=== PATIENT | female | born 1990 | race Caucasian/White ===

== ENCOUNTER 2016-08-26 01:01 | Emergency (ER) | payer SELFPAY ==
--- NOTE | 2016-08-26 01:53 | ED ---
Abdominal Pain/Female - HPI Summary HPI Summary: Patient presents for evaluation of evaluation of pelvic pain. Has been dealing with sharp suprapubic pain with radiation down to the vagina for the last several years. Recurrent issue without change to character. Came for evaluation. Claims to have had several ED visits with various imaging and diagnositic modalities without focal cause. Never FU with CHIEF RECORDIST as directed. Denies flank pain, systemic symptoms, concern for STD, vaginal bleeding or discharge. No allev factors attempted. No specific aggrav factors. - History of Current Complaint Chief Complaint: EDAbdPain Stated Complaint: ABD PAIN Time Seen by Provider: 08/26/16 01:18 Hx Obtained From: Patient, Family/[employer] [place] [employer] - Boyfriend Hx Last Menstrual Period: 11/29/13 Onset/Duration: Gradual Onset Timing: Intermittent Episode Lasting - Minutes Pain Intensity: 10 Allergies/Adverse Reactions: Allergies Allergy/AdvReac Type Severity Reaction Status Date / Time No Known Allergies Allergy Verified 05/03/15 13:26 PMH/Surg Hx/FS Hx/Imm Hx Previously Healthy: Yes Respiratory History: Reports: Hx Asthma - Surgical History Surgery Procedure, Year, and Place: wisdom teeth extraction 10/2013 Infectious Disease History: No Infectious Disease History: Denies: Traveled Outside the [place] in Last 30 Days - Social History Alcohol Use: None Substance Use Type: Reports: None Smoking Status (MU): Never Smoked Tobacco Type: eCigarettes Review of Systems Negative: Fever, Chills Positive: no symptoms reported All Other Systems Reviewed And Are Negative: Yes Physical Exam Triage Information Reviewed: Yes Vital Signs On Initial Exam: Initial Vitals Temp Pulse Resp BP Pulse Ox 98.2 F 82 16 120/76 98 08/26/16 01:11 08/26/16 01:11 08/26/16 01:11 08/26/16 01:11 08/26/16 01:11 Vital Signs Reviewed: Yes Appearance: Positive: Well-Appearing, No Pain Distress, Well-Nourished Skin: Positive: Warm, Skin Color Reflects Adequate Perfusion, Dry Respiratory/Lung Sounds: Positive: Clear to Auscultation, Breath Sounds Present Cardiovascular: Positive: Normal, RRR, Pulses are Symmetrical in both Upper and Lower Extremities Abdomen Description: Positive: Nontender, No Organomegaly, Soft Pelvic Exam: Positive: other - Deferred pelvic exam Musculoskeletal: Positive: Normal, Strength/ROM Intact Neurological: Positive: Normal, Sensory/Motor Intact, Alert, Oriented to Person Place, Time, CN Intact II-III, Reflexes Intact, Normal Gait Diagnostics - Vital Signs Vital Signs Temp Pulse Resp BP Pulse Ox 08/26/16 01:11 98.2 F 82 16 120/76 98 - Laboratory Lab Statement: Any lab studies that have been ordered have been reviewed, and results considered in the medical decision making process. Abdominal Pain Fem Course/Dx - Diagnoses Differential Diagnosis: Positive: Ectopic , Pelvic Inflammatory Disease , Urinary Tract Infection, Other - Unclear cause for the recurrent suprapubic pain with radiation down to the vagina. She is deferring pelvic exam and ultrasound since having previously had these. We discussed CHIEF RECORDIST FU to further evaluate this since this is a recurrent issue for the last several years without change to charcater. She is concerned for and we will check for UPT. Provider Diagnoses: Pelvic pain Discharge - Discharge Plan Condition: Stable Disposition: HOME Patient Education Materials: Pelvic Pain in Women (ED) Referrals: Michael CEVALLOS,Mary Hinds [Primary Care Provider] - Lisa Avilez MD [Medical Doctor] -
[2016-08-26 02:16] LABS: Manual Entry Verification LOR0008; UR Preg Internal Control QC Line Present; Urine Bilirubin Negative (Negative); Urine Glucose Negative (Negative); Urine Nitrite Negative (Negative)
[2016-08-26 02:28] VITALS: BP 109/64
== END 2016-08-26 02:27 | disposition home or self-care (01) ==
LOC: ED 01:01
DX: R10.2 Pelvic and perineal pain (principal)
CPT/HCPCS: 81003; 81025; 99282

== ENCOUNTER 2019-07-29 10:22 | Emergency (ER) | payer SELFPAY ==
[2019-07-29 10:47] VITALS: BP 121/73
--- NOTE | 2019-07-29 11:00 | UC ---
Throat Pain/Nasal Ayan HPI - HPI Summary HPI Summary: 28 yo female presents with lightheadedness. She tells me that she has had lightheadedness for several months - this is not new. Feels as though the room is spinning. Over the last 2 weeks she has had two episodes of what she describes as "blacking out". Most recently was yesterday. She will feel increased lightheadedness, get tunnel vision, feel faint, and vision will go dark for <20 seconds and she will improve spontaneously. Not accompanied by headache, SOB, chest pain/palpitations, abdominal pain, n/v, weakness, numbness. This has never happened to her before. She reports that both times have happened in the morning around 1030 or 1100. She does not eat breakfast. She has no PMHx positive for vertigo and asthma. Family hx of DM, but no ACS, CAD, or arrhythmias that she is aware of. She is feeling well otherwise and denies recent illness, headache, SOB, chest pain, palpitations, abdominal pain, n/v/d/c, dysuria, back pain. States no chance of today - LMP 1 week ago. - History of Current Complaint Chief Complaint: UCGeneralIllness Stated Complaint: DIZZY SPELLS Time Seen by Provider: 07/29/19 11:00 Hx Obtained From: Patient Hx Last Menstrual Period: 07/20/2019 Onset/Duration: Sudden Onset Pain Intensity: 0 - Allergies/Home Medications Allergies/Adverse Reactions: Allergies Allergy/AdvReac Type Severity Reaction Status Date / Time No Known Allergies Allergy Verified 05/03/15 13:26 Home Medications: Home Medications NK [No Home Medications Reported] 07/29/19 [History Confirmed 07/29/19] PMH/Surg Hx/FS Hx/Imm Hx Respiratory History: Asthma - Surgical History Surgical History: Yes Surgery Procedure, Year, and Place: wisdom teeth extraction 10/2013 - Family History Known Family History: Positive: Diabetes - Social History Occupation: Employed Full-time Lives: With Family Alcohol Use: None Substance Use Type: None Smoking Status (MU): Light Every Day Tobacco Smoker Type: eCigarettes Review of Systems All Other Systems Reviewed And Are Negative: No Constitutional: Positive: Negative Skin: Positive: Negative Eyes: Positive: Negative ENT: Positive: Negative Respiratory: Positive: Negative Cardiovascular: Positive: Negative Gastrointestinal: Positive: Negative Genitourinary: Positive: Negative Motor: Positive: Negative Neurovascular: Positive: Negative Musculoskeletal: Positive: Negative Neurological: Positive: Other - Dizziness Psychological: Positive: Negative Physical Exam - Summary Physical Exam Summary: GENERAL: NAD. WDWN. No pain distress. SKIN: No rashes, sores, ulcers, masses, lesions. HEENT: Head: AT/NC. No raccoon eyes or battles sign. Eyes: PERRLA. EOM intact. Conjunctiva clear without inflammation or discharge. Ears: Hearing grossly normal. TMs intact, no bulging, erythema, or edema. No hemotympanum Nose: Nasal mucosa pink and moist. NTTP maxillary and frontal sinus. Throat: Posterior oropharynx without exudates, erythema, or tonsillar enlargement. Uvula midline. NECK: Supple. Nontender. FROM CHEST: CTAB. No r/r/w. No accessory muscle use. Breathing comfortably and in no distress. CV: RRR. Pulses intact. Brisk cap refill. ABDOMEN: Soft. NTTP. Bowel sounds present MSK: FROM in B/L UEs and LEs with symmetric strength. NEURO: A&Ox3. 3 word recall, remote, recent memory, ability to follow 2-step directions, and attention intact. CN: II: Peripheral lux intact. Vision normal. III, IV, : EOMI. No nystagmus. PERRLA. V: Sensations intact and symmetric. Opens mouth and clenches teeth. VII: No facial asymmetry. Forehead wrinkles. Grins, shuts eyes, frowns, puffs cheeks. VIII: Hearing intact to finger rub. IX, X: Swallows and coughs. Uvula midline. XI: Shrugs shoulders. Turns head against resistance. XII: No tongue deviation [id number] are intact. Gait with normal base. Romberg: maintains balance, no pronator drift. Normal speech. No facial drooping. PSYCH: Age appropriate behavior. Triage Information Reviewed: Yes Vital Signs: Initial Vital Signs Temp 98 F 07/29/19 10:32 Pulse 71 07/29/19 10:32 Resp 16 07/29/19 10:32 BP 121/73 07/29/19 10:32 Pulse Ox 100 07/29/19 10:32 Laboratory Tests 07/29/19 07/29/19 07/29/19 11:19 11:21 11:29 POC Glucose (mg/dL) 94 POC Urine Color Yellow POC Urine Clarity Clear POC Urine pH 7.5 POC Ur Specif [place] 1.015 POC Urine Protein Negative POC Ur Glucose (UA) Negative POC Urine Ketones Negative POC Urine Blood Negative POC Urine Nitrite Negative POC Urine Bilirubin Negative POC Urine Urobilinogen 0.2 POC U Leukocyte Esteras Negative POC Ur Test Negative Vital Signs Reviewed: Yes Diagnostics - Radiology Brain CT Radiology Interpretation Completed By: Radiologist Summary of Radiographic Findings: IMPRESSION: NO ACUTE INTRACRANIAL PATHOLOGY. - EKG Summary of EKG Findings: 59bpm Sinus bradycardia. RSR in V1 likely normal variant. Borderline left axis deviation. No STEMI as read by Dr. Banegas. Re-Evaluation - Re-Evaluation First Eval Re-Evaluation Time: 12:16 Change: Improved Comment: Moderate improvement of "lightheadedness" Throat Pain/Nasal Course/Dx - Course Course Of Treatment: UA, EKG, POC glucose, and urine all WNL/negative. Exam WNL. Improved with meclizine. Will draw for CBC, CMP, TSH, and HIV today and have pt f/u with her PCP for further evaluation. Advised to go to the ED if she has another episode of "blacking out" - Differential Dx/Diagnosis Provider Diagnosis: Dizziness Discharge ED - Sign-Out/Discharge Documenting (check all that apply): Patient Departure All imaging exams completed and their final reports reviewed: Yes - Discharge Plan Condition: Stable Disposition: HOME Patient Education Materials: Near Syncope (ED), Dizziness (ED) Forms: *Work Release Referrals: Mary Rodriguez PA [Primary Care Provider] - 2 Days Additional Instructions: If you develop a fever, shortness of breath, chest pain, new or worsening symptoms - please call your PCP or go to the ED immediately. Your work-up today was normal. We have drawn labwork to further evaluate your symptoms. I recommend that you follow up with your primary doctor in 2 days for a recheck of your symptoms and review of your labwork from today. If your symptoms return - please go to the ER immediately - Billing Disposition and Condition Condition: STABLE Disposition: Home - Attestation Statements Provider Attestation: This patient was not seen by me. I was available for consult. Chart reviewed. FRANCISCO
[2019-07-29] MEDS ORDERED: Meclizine TAB* 12.5 MG PO ONE (11:23)
[2019-07-29 16:47] LABS: ABS Basophils 0.1 10^3/ul (0-0.2); ABS Eosinophils 0.1 10^3/ul (0-0.6); ABS Lymphocytes 1.4 10^3/ul (1.0-4.8); ABS Monocytes 0.3 10^3/ul (0-0.8); ABS Neutrophils 2.1 10^3/ul (1.5-7.7); Eosinophil % 3.4 %; Hematocrit 41 % (35-47); Lymphocyte % 35.2 %; Mean Corpuscular HGB Conc 34 g/dL (31-36); Mean Corpuscular Hemoglobin 30 pg (27-31); Mean Corpuscular Volume 88 fL (80-97); Mean Platelet Volume 8.9 fL (7.4-10.4); Platelet Count 288 10^3/uL (150-450); Red Blood Count 4.61 10^6 /uL (3.70-4.87); Red Cell Distribution Width 13 % (10-15); White Blood Count 3.9 10^3/uL (3.5-10.8)
[2019-07-29 16:58] LABS: Albumin 4.8 g/dL (3.2-5.2); Calcium 9.6 mg/dL (8.6-10.3); Potassium 4.3 mmol/L (3.5-5.0); Total Bilirubin 0.7 mg/dL (0.2-1.0)
[2019-07-29 17:04] LABS: Albumin/Globulin Ratio 1.8 (1-3); BUN/Creatinine Ratio 9.3 (8-20); EGFR African American 95.1 (>60); EGFR Non-African American 78.6 (>60); Globulin 2.7 g/dL (2-4); Total Protein 7.5 g/dL (6.4-8.9)
[2019-07-29 17:16] LABS: TSH (Thyroid Stimulating Horm) 3.03 mcIU/mL (0.34-5.60)
[2019-07-29 19:59] LABS: HIV 4th Generation Nonreactive (Nonreactive)
== END 2019-07-29 12:50 | disposition home or self-care (01) ==
LOC: UCEAST 10:22
DX: R42 Dizziness and giddiness (principal); J45.909 Unspecified asthma, uncomplicated; F17.290 Nicotine dependence, other tobacco product, uncomplicated; R00.1 Bradycardia, unspecified
CPT/HCPCS: 36415; 70450; 80053; 81003; 84443; 84702; 85025; 87389; 93005; 99212; A9270-GY; G0463